=== PATIENT | female | born 1970 | race Caucasian/White ===

== ENCOUNTER 2017-05-27 14:59 | Emergency (ER) | payer MEDICAID ==
[~2017-05-27] VITALS: Ht 160 cm; Wt 98.0 kg
[~2017-05-27 14:59] MED LIST: ASPI325T PO; LORA0.5T PO
[2017-05-27 15:03] VITALS: BP 149/80; PULSE 114; RESP 16; TEMP 98.6; O2SAT 96
[2017-05-27] MEDS ORDERED: ACETAMINOPHEN/HYDROcodone 325 MG/10 MG TAB PO ONE (15:45)
[2017-05-27] MEDS ORDERED: PROMETHAZINE HCL 25 MG TAB PO ONE (15:45)
[2017-05-27 15:49] VITALS: BP 178/86; PULSE 97; RESP 16; O2SAT 97
--- NOTE | 2017-05-27 16:19 | PD ---
HPI Chief Complaint: Headache Time Seen by Provider: 15:39 Travel History International Travel<30 days: No Contact w/Intl Traveler<30days: No Traveled to known affect area: No History of Present Illness HPI Patient presents with complaints of a left frontal/parietal headache for 1 week. States it is the worst headache she is ever had. Denies any trauma misstep or fall. Poor response to [id number] nonsteroidals and Tylenol. Mild nausea without vomiting. Denies any aura. Mild photophobia. No history of migraines. Describes the headache is dull and constant. Pain 7 out of 10 PFSH Past Medical History Asthma: No Anxiety: Yes Heart Rhythm Problems: No Cancer: No Cardiac Catheterization: No Cardiovascular Problems: Yes High Cholesterol: No Chest Pain: Yes (on admit) Congestive Heart Failure: No COPD: Yes Cerebrovascular Accident: No Diabetes: No Diminished Hearing: No Endocrine: No Genitourinary: No Hypertension: Yes Immune Disorder: No Musculoskeletal: No Neurologic: Yes Psychiatric: No Reproductive: No Respiratory: Yes Migraines: No Seizures: Yes (small seizures in the past) Sleep Apnea: No Thyroid Disease: No Influenza Vaccination: No PNEUMOCCOCAL Vaccine (Year): 2 ?: Not LMP: 2 WEEKS : 4 Para: 4 Tubal Ligation: Yes Past Surgical History Abdominal Surgery: Yes (gall bladder surgery) Cardiac Surgery: No Cholecystectomy: Yes Coronary Artery Bypass Graft: No Ear Surgery: No Endocrine Surgery: No Eye Surgery: No Genitourinary Surgery: No Gynecologic Surgery: No Oral Surgery: No Thoracic Surgery: No Family History Family Myocardial Infarction: Yes (GRAND PARENTS) Social History Alcohol Use: Yes (2-3 DRINKS WEEKLY) Tobacco Use: Yes (CIGARETTES, 1 PPD) Substance Use: No Allergies-Medications (Allergen,Severity, Reaction): Coded Allergies: No Known Allergies (Verified Adverse Reaction, Unknown, 05/27/17) Reported Meds & Prescriptions Reported Meds & Active Scripts Active Phenergan (Promethazine HCl) 25 Mg Tablet 25 Mg PO Q6H PRN Hydrocodone-Acetaminophen 10-325 mg Tab 1 Tab PO Q4H PRN Review of Systems General / Constitutional: No: Fever Eyes: No: Visual changes HENT: Positive: Headaches Cardiovascular: No: Chest Pain or Discomfort Respiratory: No: Shortness of Breath Gastrointestinal: No: Abdominal Pain Genitourinary: No: Dysuria Musculoskeletal: No: Pain Skin: No Rash Neurologic: No: Weakness Psychiatric: No: Depression Endocrine: No: Polydipsia Hematologic/Lymphatic: No: Easy Bruising Physical Exam Narrative GENERAL: Well-nourished, well-developed patient. SKIN: Focused skin assessment warm/dry. HEAD: Normocephalic. EYES: No scleral icterus. No injection or drainage. NECK: Supple, trachea midline. No JVD or lymphadenopathy. CARDIOVASCULAR: Regular rate and rhythm without murmurs, gallops, or rubs. RESPIRATORY: Breath sounds equal bilaterally. No accessory muscle use. GASTROINTESTINAL: Abdomen soft, non-tender, nondistended. MUSCULOSKELETAL: No cyanosis, or edema. BACK: Nontender without obvious deformity. No CVA tenderness. Data Data Last Documented VS Vital Signs Date Time Temp Pulse Resp B/P (MAP) Pulse Ox O2 Delivery O2 Flow Rate FiO2 05/27/17 15:49 97 16 178/86 (116) 97 Room Air 05/27/17 15:[address] Brain W/O Iv Contrast(Rout) (05/27/17 ) Acetamin-Hydrocod 325-10 Mg ([place] 10-32 (05/27/17 15:45) Promethazine (Phenergan) (05/27/17 15:45) MDM Medical Decision Making Medical Screen Exam Complete: Yes Emergency Medical Condition: Yes Differential Diagnosis CVA, migraine, sinusitis Narrative Course Assessment and plan discussed with patient at bedside. Patient received Lortab and Phenergan with significant improvement of her headache. CT of the head showed no acute intracranial process Diagnosis Primary Impression: Migraine Qualified Codes: G43.001 - Migraine without aura, not intractable, with status migrainosus Patient Instructions: General Instructions Additional Instructions: Encouraged rest and fluids. Encouraged to follow-up with her PCP. Return to the emergency room with any onset of new symptoms. Med/Other Pt SpecificInfo: Prescription(s) given Scripts Promethazine (Phenergan) 25 Mg Tablet 25 MG PO Q6H Y for NAUSEA OR VOMITING, #10 TAB 0 Refills Prov: Vladimir Thompson MD 05/27/17 Hydrocodone-Acetaminophen (Hydrocodone-Acetaminophen) 10-325 mg Tab 1 TAB PO Q4H Y for PAIN, #10 TAB 0 Refills Prov: Vladimir Thompson MD 05/27/17 Disposition: 01 DISCHARGE HOME Condition: Good Vladimir Thompson MD May 27, 2017 16:19
--- NOTE | 2017-05-27 16:35 | RADRPT ---
EXAM DATE/TIME: 05/27/2017 16:05 [facility] COMPARISON: No previous studies available for comparison. INDICATIONS : Headache for a week, over left eyebrow. RADIATION DOSE: 50.52 CTDIvol (mGy) MEDICAL HISTORY : Chronic obstructive pulmonary disease. Hypertension. Seizures.Chest pain SURGICAL HISTORY : Cholecystectomy. Orthopedic ENCOUNTER: Initial ACUITY: 1 week PAIN SCALE: 9/10 LOCATION: Left cranial TECHNIQUE: Multiple contiguous axial images were obtained of the head. Using automated exposure control and adj ustment of the mA and/or kV according to patient size, radiation dose was kept as low as reasonably a chievable to obtain optimal diagnostic quality images. DICOM format image data is available electro nically for review and comparison. FINDINGS: CEREBRUM: The ventricles are normal for age. No evidence of midline shift, mass lesion, hemorrhage or acute in farction. No extra-axial fluid collections are seen. POSTERIOR FOSSA: The cerebellum and brainstem are intact. The 4th ventricle is midline. The cerebellopontine angle i s unremarkable. EXTRACRANIAL: The visualized portion of the orbits is intact. SKULL: The calvaria is intact. No evidence of skull fracture. CONCLUSION: Negative exam. Yariel Capps MD on May 27, 2017 at 16:33 Board Certified Radiologist. This report was verified electronically.
[2017-05-27] MEDS ORDERED: HYDR-3583 PO (16:41)
[2017-05-27] MEDS ORDERED: PROM25TA10 PO (16:41)
[2017-05-27 16:50] VITALS: BP 161/80; PULSE 90; RESP 16; O2SAT 99
== END 2017-05-27 16:57 | disposition home or self-care (01) ==
LOC: PHED 14:59
DX: G43.001 Migraine without aura, not intractable, with status migrainosus (principal); F41.9 Anxiety disorder, unspecified; J44.9 Chronic obstructive pulmonary disease, unspecified; I10 Essential (primary) hypertension; F17.210 Nicotine dependence, cigarettes, uncomplicated
CPT/HCPCS: 70450; 99283; Q0169